=== PATIENT | female | born 1955 | race Caucasian/White ===

== ENCOUNTER 2022-05-20 07:46 | Emergency (ER) | payer BC, MEDICARE ==
[2022-05-20] MEDS ORDERED: Ondansetron 4 MG/2 ML SDV IVPUSH ONE (08:06)
[2022-05-20 08:50] LABS: ANION GAP 14.8 mEq/L (7-13)
[2022-05-20] MEDS ORDERED: Meclizine 12.5 MG Tab PO ONE (09:07)
== END 2022-05-20 10:07 | disposition home or self-care (01) ==
LOC: DL.ED 07:46
DX: R42 Dizziness and giddiness (principal); Z91.048 Other nonmedicinal substance allergy status; Z88.1 Allergy status to other antibiotic agents; Z88.8 Allergy status to other drugs, medicaments and biological substances
CPT/HCPCS: 36415; 70450; 80053; 83605; 84484; 85025; 93005; 96374; 99284; A9270; J2405

== ENCOUNTER 2024-09-28 01:04 | Emergency (ER) | payer BC, MEDICARE ==
[2024-09-28] MEDS: Lactated Ringers 1,000 ML IV ONE (01:33)
[2024-09-28 01:41] LABS: BASOPHILS PERCENT AUTO 0.4 % (0.0-1.0); EOSINOPHILS PERCENT AUTO 2.7 % (1.0-3.0); HEMATOCRIT 41.3 % (37.0-47.0); HEMOGLOBIN 13.8 g/dL (12.0-16.0); LYMPHOCYTES PERCENT AUTO 29.5 % (20.5-50.1); MEAN CORPUSCULAR HEMOGLOBIN 29.7 pg (27.0-34.0); MEAN CORPUSCULAR HGB CONC 33.4 g/dL (33.0-35.0); MONOCYTES PERCENT AUTO 8.4 % (2-8); PLATELET COUNT,PLT 202 10^3/uL (150-450); RED BLOOD CELL COUNT 4.64 10^6/uL (4.2-5.4); WHITE BLOOD CELL COUNT,WBC 7.8 10^3/uL (5.0-10.0)
[2024-09-28 02:04] LABS: A/G RATIO 1.1; ALBUMIN 3.7 g/dL (3.4-5.0); ANION GAP 15.7 mEq/L (7-13); BILIRUBIN TOTAL 0.3 mg/dL (0.2-1.0); BUN/CREATININE RATIO 15.3 (No establ ref range); CALCIUM 9.4 mg/dL (8.5-10.1); CREATININE 0.85 mg/dL (0.55-1.02); EST CRCL DRUG DOSING (CG) 52.4 mL/min; MAGNESIUM 1.9 mg/dL (1.8-2.4); POTASSIUM,K 3.7 mmol/L (3.5-5.1); PROTEIN TOTAL,TP 7.1 g/dL (6.4-8.2)
[2024-09-28 02:59] LABS: APPEARANCE,URINE CLEAR (CLEAR); BILIRUBIN,URINE NEGATIVE (NEGATIVE); COLOR,URINE YELLOW (YELLOW); GLUCOSE,URINE NEGATIVE (NEGATIVE); KETONES,URINE NEGATIVE (NEGATIVE); LEUKOCYTE ESTERASE,URINE SMALL (NEGATIVE); NITRITE,URINE NEGATIVE (NEGATIVE); OCCULT BLOOD,URINE NEGATIVE (NEGATIVE); PROTEIN,URINE NEGATIVE (NEGATIVE); UROBILINOGEN,URINE 0.2 mg/dL (0.2-1.0)
[2024-09-28 03:16] LABS: BACTERIA,URINE MODERATE /HPF (0-FEW/HPF); EPITHELIAL CELLS,URINE MODERATE /HPF (NOT SEEN); RBC,URINE 0-5 /HPF (0-5); WBC,URINE 20-30 /HPF (0-5/HPF)
[2024-09-28] MEDS: cefTRIAXone 1 GM Vial IVPUSH ONE (03:57)
== END 2024-09-28 04:15 | disposition home or self-care (01) ==
LOC: DL.ED 01:04
DX: G43.909 Migraine, unspecified, not intractable, without status migrainosus (principal); M79.652 Pain in left thigh; N39.0 Urinary tract infection, site not specified; E86.0 Dehydration; Z88.1 Allergy status to other antibiotic agents; Z88.8 Allergy status to other drugs, medicaments and biological substances; Z91.048 Other nonmedicinal substance allergy status
CPT/HCPCS: 36415; 70450; 72125; 72131; 73552; 80053; 81001; 82550; 83735; 84484; 85025; 87086; 96361; 96374; 99284; J0696; J7120

== ENCOUNTER 2025-01-20 05:49 | Day surgery (SDC) | payer BC, MEDICARE ==
[2025-01-20] MEDS ORDERED: Lidocaine 2% 20 ML MDV NERVRT ONE (05:50)
[2025-01-20] MEDS ORDERED: Glycopyrrolate 0.2 MG/ML 2 ML SDV IV ONE (05:50)
[2025-01-20] MEDS ORDERED: Propofol 200 MG/20 ML SDV IV ONE (05:50)
[2025-01-20] MEDS ORDERED: Lactated Ringers 1,000 ML IV ONE (05:50)
[2025-01-20] MEDS ORDERED: Dextrose 5%-0.45% NaCl 1,000 ML IV ONE (05:50)
[2025-01-20] MEDS ORDERED: Dextrose 5%-0.45% NaCl 1,000 ML IV SCH (06:00)
[2025-01-20] MEDS: Lactated Ringers 1,000 ML IV SCH (06:23)
[2025-01-20] MEDS ORDERED: Propofol 200 MG/20 ML SDV ONE (06:44)
== END 2025-01-20 08:33 | disposition home or self-care (01) ==
LOC: DL.ENDO 05:49
PROVIDERS: ATTEND Internal Medicine Gastroenterology
DX: Z12.11 Encounter for screening for malignant neoplasm of colon (principal); D12.0 Benign neoplasm of cecum; K57.30 Diverticulosis of large intestine without perforation or abscess without bleeding; Z88.8 Allergy status to other drugs, medicaments and biological substances; Z88.1 Allergy status to other antibiotic agents; Z87.891 Personal history of nicotine dependence; Z79.899 Other long term (current) drug therapy
CPT/HCPCS: 45380; 45385; 88305; J2003; J2704; J3490; J7120; S5010; 00811